=== PATIENT | female | born 1985 | race American Indian/Alaskan Native ===

== ENCOUNTER 2017-01-18 11:02 | Emergency (ER) | payer MEDICAID ==
[2017-01-18 11:14] VITALS: BP 132/93
--- NOTE | 2017-01-18 12:10 | Emergency Department Report ---
HPI - General Chief Complaint: Extremity Injury, Lower Time Seen by Provider: 01/18/17 12:09 - HPI HPI: Patient is a 31-year-old female presents to ED complaining of right big toe pain 1 day. 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 Patient states she was bleeding moderately for a couple of minutes and bleeding stopped. Patient states she was admitted at least nail bed also told partially. Patient states no bleeding at the moment. Patient denies loss of sensation or foot or toe. Patient states pain localized to the toe, throbbing in nature 8 out of 10 intensity. Patient denies fevers/chills/nausea/vomiting/abdominal pain/chest pain or any other problems. ED Past Medical Hx - Past Medical History Previous Medical History?: No - Surgical History Hx Breast Surgery: Yes (TUMOR REMOVAL RIGHT BREAST) - Social History Smoking Status: Current Every Day Smoker Substance Use Type: Alcohol, Marijuana - Medications Home Medications: Home Medications Medication Instructions Recorded Confirmed Last Taken Type Acetaminophen/Codeine 1 tab PO Q6H #12 tablet 01/18/17 Unknown Rx [Acetaminophen-Codeine #3 TAB] Cephalexin [Keflex] 500 mg PO Q12HR #10 cap 01/18/17 Unknown Rx Ibuprofen [Motrin] 600 mg PO Q8H PRN #30 tablet 01/18/17 Unknown Rx ED Review of Systems ROS: Stated complaint: TOENAIL BROKEN Other details as noted in HPI Constitutional: denies: chills, fever Eyes: denies: eye pain, eye discharge, vision change ENT: denies: ear pain, throat pain Respiratory: denies: cough, shortness of breath, stridor, wheezing Cardiovascular: denies: chest pain, palpitations Endocrine: no symptoms reported Gastrointestinal: denies: abdominal pain, nausea, vomiting, diarrhea, constipation Genitourinary: denies: urgency, dysuria, frequency, discharge Musculoskeletal: denies: back pain, joint swelling, arthralgia Skin: denies: rash, lesions Neurological: denies: headache, weakness, paresthesias Psychiatric: denies: anxiety, depression Hematological/Lymphatic: denies: easy bleeding, easy bruising Physical Exam - Physical Exam Vital Signs: Vital Signs 01/18/17 11:08 Temperature 98.2 F Pulse Rate 64 Respiratory 17 Rate Blood Pressure 132/93 O2 Sat by Pulse 100 Oximetry Physical Exam: GENERAL: Alert and oriented x3, no apparent distress, Normal Gait, atraumatic. HEAD: Head is normocephalic and a-traumatic. NECK: Supple. Non edematous, No carotid bruits. No lymphadenopathy or thyromegaly. LUNGS: Symetrical with respiration, No wheezing, no rales or crackles, CTAB. HEART: S1, S2 present, regular rate and rhythm without murmur, no rubs, no gallops. ABDOMEN: No organomegaly was noted,Positive bowel sounds, soft, and non- distended. . Nontender to palpation on all Quadrants, NO CVA tenderness. EXTREMITIES/MUSCULOSKELETAL: No cyanosis, clubbing, rash, lesions or edema. Full ROM bilaterally. UE/LE Pulses 2+ bilaterally. LE and UE 5+ strength bilaterally. Pain 10 toenails. Right foot big toe now tender to palpation. Nail on the bed. No bleeding, no edema, no pus or drainage on to NEUROLOGIC: No focal Deficit, Cranial nerves II through XII are grossly intact. No loss of sensation, PSYCHIATRIC: Mood is congruent with affect, denies suicidal or homicidal ideations. SKIN: Warm and dry, No lesions, No ulceration or induration present. ED Course Vital Signs 01/18/17 11:08 Temperature 98.2 F Pulse Rate 64 Respiratory 17 Rate Blood Pressure 132/93 O2 Sat by Pulse 100 Oximetry ED Medical Decision Making - Medical Decision Making 2-year-old female presents with a toenail injury. ED course: Patient received 2 tablets of Tylenol 3. 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 Discussed with patient referrals given and the need to follow-up. Discussed pain medication and antibiotic therapy to prevent an infection. Discussed with patient follow-up is needed. Vital signs are stable. Patient is in no acute distress. Patient understands and states she will follow instructions. Critical care attestation.: If time is entered above; I have spent that time in minutes in the direct care of this critically ill patient, excluding procedure time. ED Disposition Clinical Impression: Nail bed injury Disposition: DISCHARGED TO HOME OR SELFCARE Is pt being admited?: No Does the pt Need Aspirin: No Condition: Stable Instructions: Toenail/Fingernail Removal (ED), Paronychia (ED) Prescriptions: Acetaminophen/Codeine [Acetaminophen-Codeine #3 TAB] 1 tab PO Q6H #12 tablet Cephalexin [Keflex] 500 mg PO Q12HR #10 cap Ibuprofen [Motrin] 600 mg PO Q8H PRN #30 tablet PRN Reason: Pain Referrals: PRIMARY CARE, [Primary Care Provider] - 3-5 Days JOCELINE JAY MD [Referring] - 3-5 Days GARRCIK RIZVI MD [Staff Physician] - 3-5 Days OPAL PALACIOS [Referring] - 3-5 Days ANDREW BOURNE DPM [Referring] - 3-5 Days Forms: Work/School Release Form Time of Disposition: 13:14
[2017-01-18] MEDS ORDERED: TYLENOL #3 PO ONE (12:30)
== END 2017-01-18 13:53 | disposition home or self-care (01) ==
LOC: ED 11:02
DX: S99.921A Unspecified injury of right foot, initial encounter (principal); F17.200 Nicotine dependence, unspecified, uncomplicated; F12.10 Cannabis abuse, uncomplicated; X58.XXXA Exposure to other specified factors, initial encounter; Y93.89 Activity, other specified; Y99.8 Other external cause status; Y92.89 Other specified places as the place of occurrence of the external cause
CPT/HCPCS: 99282